=== PATIENT | male | born 2000 | race Caucasian/White ===

== ENCOUNTER 2023-04-30 17:54 | Emergency (ER) | payer OTHER, SELFPAY ==
[2023-04-30 18:03] VITALS: BP 128/89; PULSE 72; RESP 16; TEMP 36.9; O2SAT 100
--- NOTE | 2023-04-30 18:17 | ED.GENADULT ---
HPI - General Adult General Chief complaint: Ear Stated complaint: Bump behind ear Time Seen by Provider: 04/30/23 18:05 Source: patient and RN notes reviewed Mode of arrival: ambulatory Limitations: no limitations History of Present Illness HPI narrative: Patient presents today complaining of left eye redness and mild itching x2 days. Denies drainage. He also reports a lump behind his left ear and to his left jaw. States the lump behind his left ear has been present for years, but now he has a new lump in his left on wanted to come in for evaluation. States the long-term lump is now painful where as it has not been painful in the past. He has never had evaluated. Denies any recent illness. Related Data Allergies Allergy/AdvReac Type Severity Reaction Status Date / Time No Known Allergies Allergy Verified 04/30/23 18:06 Review of Systems Review of Systems: CONSTITUTIONAL: Denies body aches, fever, chills, or sweats. EYES: Denies visual changes, or discharge.+ left eye redness and itching ENT: Denies rhinorrhea, congestion, sore throat, or otalgia.+ lump behind left ear CARDIOVASCULAR: Denies chest pain, palpitations, or edema. RESPIRATORY: Denies cough or dyspnea. GASTROINTESTINAL: Denies abdominal pain, nausea, vomiting, or diarrhea. GENITOURINARY: Denies dysuria or hematuria. SKIN: Denies rash, itching, or wounds. MUSCULOSKELETAL: Denies back pain, joint pain, or myalgia. NEUROLOGIC: Denies headache, numbness, tingling, or weakness. PSYCH: Denies depression or anxiety. PMFSH Comments At time of signature, I have reviewed and agree with nursing past medical, surgical, social and family history unless otherwise noted. Please see nursing chart for further information. There is no relevant family history pertinent to the presenting complaint Exam Narrative: GENERAL: Well-appearing, well-nourished, and in no acute distress. HEAD: Normocephalic, atraumatic. EYES: EOMI. PERRL. Right eye normal. Left eye: Scant injected conjunctiva. Very mild edema to the upper eyelid with erythema, may develop into a stye. ENT: Mucous membranes pink and moist. Nares clear. No rhinorrhea. TMs normal bilaterally. Throat normal. Uvula midline. NECK: Normal AROM. Supple. Patient has tender lymph nodes to the post and preauricular areas as well as 1 to the posterior cervical chain, 1 to the anterior cervical chain, 1 to the submandibular area. All are soft and tender to palpation. CHEST: No respiratory distress. EXTREMITIES: Normal range of motion. No edema. SKIN: Warm, dry, no rash. Capillary refill normal. Normal skin turgor. NEURO: No focal deficits. Alert and oriented x3. Gait steady. PSYCH: Normal affect. No signs of depression or anxiety. Course Course Level of Care: Express Care Visit Vital Signs Vital signs: Vital Signs Temperature 98.4 F 04/30/23 18:03 Pulse Rate 72 04/30/23 18:03 Respiratory Rate 16 04/30/23 18:03 Blood Pressure 128/89 04/30/23 18:03 Pulse Oximetry 100 04/30/23 18:03 Temperature 98.4 F 04/30/23 18:03 Pulse Rate 72 04/30/23 18:03 Respiratory Rate 16 04/30/23 18:03 Blood Pressure 128/89 04/30/23 18:03 Pulse Oximetry 100 04/30/23 18:03 Reviewed. Pt has been instructed to follow up with his PCP regarding his elevated blood pressure today. Medical Decision Making MDM Narrative Medical decision making narrative: Will treat patient's eye with course of [place]. Patient does not currently have a PCP. Will provide him with list of doctors in this building so he can initiate care. Stressed the importance of following up with PCP if the lymph nodes did not resolve themselves in 7-10 days. Patient agrees with plan. Anticipatory guidance given. Differential Diagnosis Differential Diagnosis: Stye, conjunctivitis, blepharitis, lymphadenopathy Vital Signs Vital Signs: Vital Signs Temperature 98.4 F 04/30/23 18:03 Pulse Rate 72 04/30/23
== END 2023-04-30 18:34 | disposition home or self-care (01) ==
PROVIDERS: Emergency Provider Nurse Practitioner
DX: R59.1 Generalized enlarged lymph nodes (principal); H00.014 Hordeolum externum left upper eyelid
CPT/HCPCS: 99203; G0463